=== PATIENT | female | born 1990 | race Two or more races ===

== ENCOUNTER 2022-08-21 14:07 | Emergency (ER) | payer MEDICAID ==
[~2022-08-21] VITALS: Ht 177.8 cm; Wt 60.0 kg
[2022-08-21] MEDS ORDERED: SODIUM CHLORIDE 0.9% 1,000 ML IV ONE (15:00)
[2022-08-21] MEDS ORDERED: LORAZEPAM 2MG/ML CPJ IV ONE (15:00)
[2022-08-21 15:25] LABS: BASOPHILS % 0.9 % (0.0-2.0); EOSINOPHILS % 0.4 % (0.0-5.0); HEMATOCRIT. 38.3 % (36.0-48.0); LYMPHOCYTES % 35.3 % (20.0-50.0); MEAN CORPUSCULAR HEMOGLOBIN 31.5 pg (28.0-32.0); MEAN CORPUSCULAR VOLUME 92.5 fL (81.0-99.0); MEAN PLATELET VOLUME 9.1 fl (7.4-10.4); MONOCYTES % 9.4 % (2.0-8.0); PLATELET 240 x1000/uL (130-400); RED BLOOD CELL COUNT 4.14 mill/uL (4.2-5.4)
[2022-08-21 15:27] LABS: CHLORIDE 106 mEq/L (98-107)
[2022-08-21] MEDS ORDERED: POTASSIUM CHLORIDE 20MEQ TABLET SR PO NR (15:45)
[2022-08-21] MEDS ORDERED: POTASSIUM CHLORIDE INJ 40 MEQ in DEXT 5% WATER 250 ML IV NR (15:45)
[2022-08-21 16:12] LABS: HCG SCREEN NEGATIVE
[2022-08-21 18:15] LABS: *AMPHETAMINES SCREEN URINE NEGATIVE (NEGATIVE); *BARBITURATES SCREEN URINE NEGATIVE (NEGATIVE); *BENZODIAZEPINES SCREEN URINE NEGATIVE (NEGATIVE); *COCAINE SCREEN URINE NEGATIVE (NEGATIVE); METHADONE URINE SCREEN NEGATIVE (NEGATIVE); OPIATES URINE SCREEN NEGATIVE (NEGATIVE); PHENCYCLIDINE URINE SCREEN NEGATIVE (NEGATIVE)
[2022-08-21] MEDS ORDERED: HYDR-3735 MT (18:27)
[2022-08-21 18:30] LABS: CANNABINOID URINE SCREEN PRESUMTIVE POSITIVE (NEGATIVE)
[2022-08-21 18:39] VITALS: BP 138/92
== END 2022-08-21 18:31 | disposition home or self-care (01) ==
LOC: ER 14:19
DX: F41.9 Anxiety disorder, unspecified (principal); R00.2 Palpitations; E87.6 Hypokalemia; F12.10 Cannabis abuse, uncomplicated; I10 Essential (primary) hypertension; F32.A Depression, unspecified; F43.10 Post-traumatic stress disorder, unspecified; F17.210 Nicotine dependence, cigarettes, uncomplicated; Z71.6 Tobacco abuse counseling; Z88.6 Allergy status to analgesic agent
CPT/HCPCS: 36415; 71045; 80053; 80305; 83880; 84484; 84703; 85025; 85379; 87426; 93005; 96361; 96365; 96375; 99285; 99406; C9803; J2060; J3480; J7060

== ENCOUNTER 2023-04-15 09:01 | Emergency (ER) | payer MEDICAID ==
[~2023-04-15] VITALS: Ht 182.9 cm; Wt 58.0 kg
[~2023-04-15 09:01] MED LIST: HYDR-3735 MT
[2023-04-15 10:41] LABS: CLARITY URINE TURBID (CLEAR); COLOR URINE YELLOW (YELLOW); KETONES URINE TRACE (NEGATIVE); LEUKOCYTE ESTERASE URINE 3+ (NEGATIVE); NITRITE URINE NEGATIVE (NEGATIVE); OCCULT BLOOD URINE 3+ (NEGATIVE); PH URINE 6.5 (4.5-8.0); PROTEIN URINE 2+ (NEGATIVE); SPECIFIC GRAVITY URINE 1.016 (1.005-1.030)
[2023-04-15] MEDS ORDERED: PHEN-815 MT (11:02)
[2023-04-15] MEDS ORDERED: NITR-87 MT (11:02)
[2023-04-15 11:36] VITALS: BP 127/77
== END 2023-04-15 11:37 | disposition home or self-care (01) ==
LOC: ER 09:01
DX: N30.90 Cystitis, unspecified without hematuria (principal); F32.9 Major depressive disorder, single episode, unspecified; I10 Essential (primary) hypertension; F12.10 Cannabis abuse, uncomplicated
CPT/HCPCS: 81003; 99283